=== PATIENT | male | born 1950 ===

== ENCOUNTER 2017-02-24 12:52 | Observation (INO) | payer MEDICARE, BC, OTHER ==
[2017-02-24] MEDS ORDERED: Sodium Chloride 0.9% 500 ML IV STA (14:29)
[2017-02-24 15:22] LABS: BASO # 0.01 K/mm3 (0.0-2.0); BASO % 0.2 % (0.0-3.0); EOS % 0.6 % (1.5-5.0); GRAN % 53.3 % (50.0-68.0); HEMOGLOBIN 15.5 g/dL (14.0-18.0); LYMPH % 20.3 % (22.0-35.0); MEAN CELL VOLUME 88.2 fl (80.0-105.0); MEAN CORPUSCULAR HEMOGLOBIN 29.1 pg (25.0-35.0); MONO # 1.3 (0.1-0.6); MONO % 25.6 % (1.0-6.0); PLATELET COUNT 139 10^3/uL (120.0-450.0); RBC 5.32 10^6/uL (3.5-6.1); RED CELL DISTRIBUTION WIDTH 13.5 % (11.5-14.5); WHITE BLOOD COUNT 5.1 10^3/ul (4.5-11.0)
[2017-02-24 15:23] LABS: URINE BILIRUBIN NEGATIVE (NEGATIVE); URINE BLOOD MODERATE (NEGATIVE); URINE GLUCOSE (UA) NEGATIVE (NEGATIVE); URINE LEUKOCYTE ESTERASE NEGATIVE Leu/uL (NEGATIVE); URINE NITRATE NEGATIVE (NEGATIVE); URINE PROTEIN TRACE mg/dL (<30 mg/dL)
--- NOTE | 2017-02-24 15:27 | RAD ---
HISTORY: weakness COMPARISON: No prior. FINDINGS: LUNGS: No active pulmonary disease. PLEURA: No significant pleural effusion identified, no pneumothorax apparent. CARDIOVASCULAR: Normal. OSSEOUS STRUCTURES: No significant abnormalities. VISUALIZED UPPER ABDOMEN: Normal. OTHER FINDINGS: None. IMPRESSION: No active disease.
[2017-02-24 15:30] LABS: URINE APPEARANCE SL CLOUDY (CLEAR); URINE COLOR YELLOW (YELLOW)
[2017-02-24 15:43] LABS: ALB/GLOB RATIO 1.3 (1.1-1.8); ALT/SGPT 38 U/L (7-56); AST/SGOT 22 U/L (17-59); BLOOD UREA NITROGEN 17 mg/dL (7-21); CALCIUM 9.3 mg/dL (8.4-10.5); GFR AFRICAN-AMERICAN > 60; GFR NON-AFRICAN AMERICAN > 60; LIPASE 61 U/L (23-300)
[2017-02-24 16:16] LABS: URINE BACTERIA FEW (NEG); URINE WBC 0 - 2 /hpf (0-6)
[2017-02-24 16:37] LABS: TROPONIN I < 0.01 ng/mL
[2017-02-24 17:13] LABS: ATYPICAL LYMPHOCYTE 11 % (0.0-0.0); EOSINOPHIL 2 % (0.0-3.0); LYMPHOCYTE 20 % (22.0-35.0); MONOCYTE 9 % (1.0-6.0); NEUTROPHIL 58 % (50.0-70.0); PLATELET ESTIMATE NORMAL (NORMAL)
[2017-02-24] MEDS ORDERED: Sodium Chloride 0.45% 1,000 ML IV SCH (18:45)
--- NOTE | 2017-02-24 19:17 | ED PDOC ---
Arrival/HPI - General Historian: Patient - History of Present Illness Symptom Course: Worsening Quality: Aching Severity Level: 5 <Erika Garcia - Last Filed: 02/24/17 20:02> <Felix Ye - Last Filed: 02/24/17 21:56> - General Chief Complaint: Flu-like Symptoms Time Seen by Provider: 02/24/17 13:56 - History of Present Illness Narrative History of Present Illness (Text): 02/24/17 19:13 66-year-old male with a history of myasthenia gravis and Parkinson's disease presents today with a three-day history of generalized weakness. Patient states he's been unable to get out of the bed for the past 3-4 days. Patient states he developed fevers 2 days ago. He is complaining of nasal congestion sore throat and a nonproductive cough. Patient states he did not get his flu shot this year. He denies abdominal pain. He denies nausea or vomiting. Denies chest pain. Patient states when he coughs he feels as if he's choking. Patient complaining of headache. Denies urinary symptoms. Denies sick contacts. No other complaints (Erika Garcia) Past Medical History - Provider Review Nursing Documentation Reviewed: Yes - Travel History Have you recently traveled outside [place] w/in the past 3 mons?: No - Infectious Disease Hx of Infectious Diseases: None - Tetanus Immunization Tetanus Immunization: Unknown - Neurological Hx Parkinson's Disease: Yes Other/Comment: myasthenia gravis - HEENT Hx Glaucoma: Yes - Renal Hx Renal Disorder: No - Psychiatric Hx Depression: No Hx Emotional Abuse: No Hx Physical Abuse: No Hx Substance Use: No - Anesthesia Hx Anesthesia: No - Suicidal Assessment Feels Threatened In Home Enviroment: No <Erika Garcia - Last Filed: 02/24/17 20:02> Family/Social History - Physician Review Nursing Documentation Reviewed: Yes Family/Social History: Unknown Family HX Smoking Status: Unknown If Ever Smoked Hx Alcohol Use: No Hx Substance Use: No Hx Substance Use Treatment: No <Erika Garcia - Last Filed: 02/24/17 20:02> Allergies/Home Meds <Erika Garcia - Last Filed: 02/24/17 20:02> <Felix Ye - Last Filed: 02/24/17 21:56> Allergies/Adverse Reactions: Allergies dairy foods Allergy (Uncoded 02/24/17 13:53) DIARRHEA Home Medications: Home Meds Medication Instructions Recorded Confirmed Sertraline [Zoloft] 200 mg PO DAILY 08/20/12 02/24/17 Brimonidine 0.15% [Alphagan P 5 Ml] 1 drop OU BID 02/24/17 02/24/17 Carbidopa/Levodopa/Entacapone 1 tab PO TID 02/24/17 02/24/17 [Carbidopa, Levodopa and Entacapone 37.5 mg-20] Clonazepam [Klonopin] 0.5 mg PO HS 02/24/17 02/24/17 Hydroxyzine Pamoate [Vistaril] 25 mg PO PRN 02/24/17 02/24/17 L. Acidophilus/L. Rhamnosus 50 mg PO DAILY 02/24/17 02/24/17 [Probiotic 15 Billion Cell Cap] Latanoprost 0.005% Opht [XALATAN 1 drop HS 02/24/17 02/24/17 2.5 Ml] Melatonin 5 mg PO HS 02/24/17 02/24/17 Mycophenolate Mofetil HCl 1,000 mg PO BID 02/24/17 02/24/17 [Mycophenolate Mofetil] Pantoprazole [Protonix] 40 mg PO DAILY 02/24/17 02/24/17 Review of Systems - Review of Systems Constitutional: Fatigue, Fevers ENT: Sore Throat, Sinus Congestion Respiratory: Cough. absent: SOB Cardiovascular: absent: Chest Pain, Palpitations Gastrointestinal: absent: Abdominal Pain, Nausea, Vomiting Genitourinary Male: absent: Dysuria Musculoskeletal: absent: Arthralgias Skin: absent: Rash, Pruritis Neurological: Headache. absent: Dizziness Psychiatric: absent: Anxiety, Depression <AzoiaErika - Last Filed: 02/24/17 20:02> Physical Exam Vital Signs Reviewed: Yes Temperature: Afebrile Blood Pressure: Normal Pulse: Tachycardic Respiratory Rate: Normal Appearance: Positive for: Well-Appearing, Non-Toxic, Comfortable Pain Distress: None Mental Status: Positive for: Alert and Oriented X 3 - Systems Exam Head: Present: Atraumatic Pupils: Present: PERRL Extroacular Muscles: Present: EOMI Conjunctiva: Present: Normal Ears: Present: Normal, NORMAL TM Mouth: Present: Moist Mucous Membranes. No: Dry, Drooling, Trismus Pharnyx: Present: Normal. No: ERYTHEMA, EXUDATE Nose (External): Present: Atraumatic Nose (Internal): Present: Normal Inspection Neck: Present: Normal Range of Motion Respiratory/Chest: Present: Clear to Auscultation, Good Air Exchange. No: Respiratory Distress, Accessory Muscle Use Cardiovascular: Present: Regular Rate and Rhythm, Normal S1, S2. No: Murmurs Abdomen: Present: Normal Bowel Sounds. No: Tenderness, Distention, Peritoneal Signs, Rebound, Guarding Back: Present: Normal Inspection Upper Extremity: Present: Normal ROM Lower Extremity: Present: Normal ROM Neurological: Present: GCS=15, Speech Normal Skin: Present: Warm, Dry, Normal Color. No: Rashes Psychiatric: Present: Alert, Oriented x 3 <Erika Garcia - Last Filed: 02/24/17 20:02> Vital Signs Temp Pulse Resp BP Pulse Ox 02/24/17 18:16 81 18 135/74 97 02/24/17 16:57 89 18 138/88 97 02/24/17 15:34 99.1 F 99 H 18 134/74 97 02/24/17 13:49 99.6 F 104 H 20 136/88 97 Medical Decision Making <Erika Garcia - Last Filed: 02/24/17 20:02> <Felix Ye - Last Filed: 02/24/17 21:56> ED Course and Treatment: 02/24/17 19:19 66-year-old male with myasthenia gravis and Parkinson's disease with a four-day history of generalized weakness. Patient with slight tachycardia number emergency room and low-grade oral temperature CBC within normal limits CMP within normal limits Chest x-ray shows no infiltrate or effusion as read by the radiologist EKG shows normal sinus rhythm at 97 bpm normal axis normal intervals no ST elevations Patient's flu test is positive. Patient was given Tylenol for fever Patient was given Tamiflu by mouth Patient was given 1 L normal saline IV bolus Patient reassessment: Patient feeling slightly better still complaining of complete fatigue. Patient with a history of myasthenia gravis complaining of cough and feeling as if he is choking when he coughs with a positive fluid generalized weakness will admit observational status for further evaluation. Case was discussed in depth with Dr. Denson covering for Dr. Esqueda/jose rafael. accepts observational status admission for influenza with generalized weakness. impression; influenza, generalized weakness admit observational status to med/surg (Erika Garcia) - Lab Interpretations Lab Results: 02/24/17 15:00 02/24/17 15:00 Lab Results 02/24/17 15:00: Influenza Typ A,B (EIA) Pos for influenza a H 02/24/17 15:00: Urine Color Yellow, Urine Appearance Sl cloudy, Urine pH 6.0, Ur Specific [place] 1.025, Urine Protein Trace H, Urine Glucose (UA) Negative, Urine Ketones Trace H, Urine Blood Moderate H, Urine Nitrate Negative, Urine Bilirubin Negative, Urine Urobilinogen 2.0 H, Ur Leukocyte Esterase Negative, Urine RBC 10 - 15, Urine WBC 0 - 2, Ur Epithelial Cells 1 - 3, Urine Bacteria Few 02/24/17 15:00: WBC 5.1, RBC 5.32, Hgb 15.5, Hct 46.9, MCV 88.2, MCH 29.1, MCHC 33.0, RDW 13.5, Plt Count 139, MPV 10.0, Gran % 53.3, Lymph % (Auto) 20.3 L, [place] % (Auto) 25.6 H, Eos % (Auto) 0.6 L, Baso % (Auto) 0.2, Gran # 2.70, Lymph # 1.0 L, [place] # 1.3 H, Eos # 0.0, Baso # 0.01, Neutrophils % (Manual) 58, Lymphocytes % (Manual) 20 L, Atypical Lymphs % 11 H, Monocytes % (Manual) 9 H, Eosinophils % (Manual) 2, Platelet Evaluation Normal 02/24/17 15:00: Sodium 135, Potassium 3.9, Chloride 98, Carbon Dioxide 30, Anion Gap 12, BUN 17, Creatinine 1.1, Est GFR ( Amer) > 60, Est GFR (Non- Af Amer) > 60, Random Glucose 104, Calcium 9.3, Total Bilirubin 0.8, AST 22, ALT 38, Alkaline Phosphatase 52, Lactate Dehydrogenase 497, Total Creatine Kinase 91, Troponin I < 0.01, Total Protein 7.0, Albumin 4.0, Globulin 3.0, Albumin/Globulin Ratio 1.3, Lipase 61 - RAD Interpretation Radiology Orders: 02/24/17 14:29 CHEST PORTABLE [RAD] Stat - Medication Orders Current Medication Orders: Carbidopa/Levodopa/Entacapone (Stalevo 150) 1 tab PO TID LAITH Clonazepam (Klonopin) 0.5 mg PO HS LAITH Sodium Chloride (Sodium Chloride 0.45%) 1,000 mls @ 60 mls/hr IV .[id number] LAITH Last Admin: 02/24/17 20:04 Dose: 60 mls/hr eMAR Start Stop Document 02/24/17 20:04 CNR (Rec: 02/24/17 20:04 CNR [id number]) Intravenous Solution Start Date 02/24/17 Start Time 20:04 Sertraline HCl (Zoloft) 200 mg PO DAILY LAITH Discontinued Medications Acetaminophen (Tylenol 325mg Tab) 975 mg PO STAT STA Stop: 02/24/17 14:31 Last Admin: 02/24/17 15:10 Dose: 975 mg Sodium Chloride (Sodium Chloride 0.9%) 500 mls @ 999 mls/hr IV .Q31M STA Stop: 02/24/17 14:59 Last Admin: 02/24/17 15:10 Dose: 999 mls/hr eMAR Start Stop Document 02/24/17 15:10 HI (Rec: 02/24/17 15:10 HI [id number]) Intravenous Solution Start Date 02/24/17 Start Time 15:10 Oseltamivir Phosphate (Tamiflu Cap) 75 mg PO STAT STA PRN Reason: Protocol Stop: 02/24/17 16:03 Last Admin: 02/24/17 16:54 Dose: 75 mg - PA / PRICING STRATEGIST / Resident Statement MD/DO has reviewed & agrees with the documentation as recorded. <Felix Ye - Last Filed: 02/24/17 21:56> Disposition/Present on Arrival - Present on Arrival Any Indicators Present on Arrival: No History of DVT/PE: No History of Uncontrolled Diabetes: No Urinary Catheter: No History of Decub. Ulcer: No History Surgical Site Infection Following: None - Disposition Have Diagnosis and Disposition been Completed?: Yes Disposition Time: 18:00 Patient Plan: Observation <Erika Garcia - Last Filed: 02/24/17 20:02> <Felix Ye - Last Filed: 02/24/17 21:56> - Disposition Diagnosis: Influenza, Generalized weakness Disposition: HOSPITALIZED Condition: FAIR
[2017-02-25 06:10] VITALS: PULSE 83; RESP 20
[2017-02-25 06:55] VITALS: TEMP 98.9; BMI 31.1
[2017-02-25] MEDS ORDERED: Albuterol-Ipratrop 3 mg / 0.5 (3 ml) UD IH PRN (07:41)
[2017-02-25 07:56] LABS: BASO # 0.01 K/mm3 (0.0-2.0); BASO % 0.3 % (0.0-3.0); EOS # 0.1 (0.0-0.7); EOS % 3.4 % (1.5-5.0); GRAN # 0.58 (1.4-6.5); GRAN % 17.9 % (50.0-68.0); HEMOGLOBIN 14.6 g/dL (14.0-18.0); LYMPH # 1.6 (1.2-3.4); MEAN CELL VOLUME 87.8 fl (80.0-105.0); MEAN CORPUSCULAR HEMOGLOBIN 28.2 pg (25.0-35.0); MEAN CORPUSCULAR HGB CONC 32.1 g/dl (31.0-37.0); MONO # 0.9 (0.1-0.6); MONO % 28.4 % (1.0-6.0); RBC 5.18 10^6/uL (3.5-6.1); RED CELL DISTRIBUTION WIDTH 13.4 % (11.5-14.5); WHITE BLOOD COUNT 3.2 10^3/ul (4.5-11.0)
[2017-02-25] MEDS ORDERED: Budesonide 0.5 mg/2 ml Inhal Susp UD IH SCH (08:00)
[2017-02-25] MEDS ORDERED: Albuterol-Ipratrop 3 mg / 0.5 (3 ml) UD IH SCH (08:00)
--- NOTE | 2017-02-25 08:32 | CARD ---
APPROVED REPORT EKG Measurement Heart [id number] <Conclusion> Normal sinus rhythm Normal ECG
[2017-02-25 09:41] VITALS: BP 122/81; O2SAT 94
[2017-02-25] MEDS ORDERED: Brimonidine 0.15% 50 DROP/5 ML BOTTLE OU SCH (10:00)
[2017-02-25] MEDS ORDERED: Carbidopa/Levodopa/Entacapone 37.5mg-150mg-200mg PO SCH (10:00)
[2017-02-25] MEDS ORDERED: Fluticasone Nasal 50 mcg/Spray NS SCH (10:00)
[2017-02-25] MEDS ORDERED: Pantoprazole 40 mg EC Tab PO SCH (10:00)
--- NOTE | 2017-02-25 11:23 | CON ---
DATE: 02/25/2017 PULMONARY CONSULTATION DICTATING PHYSICIAN: Obie Lopez MD. REASON FOR CONSULTATION: Cough. REFERRING PHYSICIAN: Miquel Denson DO. HISTORY OF PRESENT ILLNESS: The patient is a 66-year-old male, with past medical history significant for myasthenia gravis, Parkinson's disease, who presents with main complaint of increasing weakness for the past 3 days. In addition, over the past 3 days, the patient also complains of nasal congestion, sore throat and a nonproductive cough. The patient denies shortness of breath at rest or dyspnea on exertion. There is also no history of chest pain, coughing up of blood or chest pain - made worse with deep respirations. The patient did state that he developed a fever 2 days ago. No history of chills or infectious exposure. No history of night sweats, weight loss or appetite change prior to the above events. No history of leg or calf pains. No history of syncope or diaphoresis. No history of recent travel or trauma. REVIEW OF SYSTEMS: No history of nausea, vomiting or diarrhea. No acute urinary symptoms. No new musculoskeletal complaints. Rest of the review of systems negative. ALLERGY: ALLERGIES ARE TO DAIRY FOODS. SOCIAL HISTORY: Negative for tobacco. Negative for alcohol. FAMILY HISTORY: No inheritable diseases. HOME MEDICATIONS: Include Zoloft, Protonix, Klonopin, mycophenolate, carbidopa. PHYSICAL EXAMINATION: GENERAL: The patient is not short of breath at rest. He is not using accessory muscles for breathing. VITAL SIGNS: Temperature 98.9, pulse 83, respirations 18, blood pressure 127/86. Oxygen saturation on room air is 96%. HEENT: Normocephalic, atraumatic. No JVD. CARDIOVASCULAR: Positive S1 and S2. No S3 gallop. LUNGS: Decreased breath sounds at the bases. Minimal bilateral rhonchi. No wheezing. EXTREMITIES: Positive for mild edema. No cyanosis or clubbing. Calves are nontender to palpation. GI: Abdomen is soft, nontender and nondistended. Bowel sounds are positive. SKIN: No acute rash. NEUROLOGIC: Limited at the present time. PERTINENT LABORATORY DATA: Chest x-ray was done yesterday and reviewed. There is no active disease present. CBC: White count 5.1, hemoglobin 15.5, hematocrit 46.9, platelets of 139,000. Complete metabolic profile - all values within normal limits. Serologies are positive for influenza A. IMPRESSION 1. Acute bronchitis. 2. Acute rhinitis. 3. Influenza A positivity. 4. Parkinson's disease. PLAN: The patient presents to [facility] with main complaint of increasing weakness for the past 3 days. In addition, as above, the patient also complains of nasal congestion, sore throat and a nonproductive cough for the past 3 days. He did develop a fever 2 days ago. There have been no temperatures measured in the hospital. I did review the chest x-ray as above. There is no active disease present. On physical exam, there is minimal bronchospasm present. However, there is no significant alveolar-arterial gradient. Oxygen saturation on room air is 96%. I will start the patient on nebulizer treatments and inhaled steroids. I will also start nasal steroids. The patient does feel better, and is clinically improved this morning. Additional pulmonary intervention will be based on the clinical status of the patient. I will discuss the above with Dr. Denson this morning. Thank you very much for this pulmonary consultation. Obie Lopez MD MTDD
--- NOTE | 2017-02-25 14:32 | HP ---
HISTORY OF PRESENT ILLNESS: I saw him in his room. He is on isolation. This is a 66-year-old male who comes in with a history of unable to get out of the bed for the past 3 days, developed fevers for the past 2 days, nasal congestion, nonproductive cough. He did get the flu shot this year, but he had a positive influenza A in the ER. PAST MEDICAL HISTORY: He has a past medical history of myasthenia gravis, Parkinson's disease, glaucoma. He has a history of depression, anxiety, insomnia, GERD. FAMILY HISTORY: Unknown family history. SOCIAL HISTORY: Not a smoker. No alcohol. No drugs. MEDICATIONS: He takes Zoloft, Alphagan, Sinemet, Klonopin, Vistaril, eyedrops, melatonin, Protonix. REVIEW OF SYSTEMS: He is fatigued. He has got fevers. He has got sore throat. He has sinus congestion, cough. No shortness of breath. No chest pains or palpitations. No abdominal pain, nausea, vomiting. No problems urinating. Does have some arthralgias. No skin issues or rashes headache. No anxiety or depression. PHYSICAL EXAMINATION: VITAL SIGNS: He has a 99.1 temp, 99 pulse, 18 respiratory rate, 134/74 blood pressure, 97% O2 sat on room air. HEENT: His head is atraumatic, normocephalic. Extraocular muscles are intact. Pupils equal, reactive to light and accommodation. Conjunctivae normal. Ears are patent. Throat is moist. No erythema. NECK: Supple. No JVD. HEART: Regular rate. Normal S1 and S2. LUNGS: Decreased breath sounds, but clear to auscultation. ABDOMEN: Soft, nontender. Positive bowel sounds. EXTREMITIES: Have no edema. Normal range of motion. NEUROLOGIC: GCS is 15. Normal speech. Alert and oriented x3. SKIN: Warm and dry. No apparent rashes or ulcers. LYMPH NODES: Thyroid midline. No palpable appreciable lymphadenopathy. LABORATORY DATA: He had multiple tests. He is positive for influenza A. White count is 5.1, hemoglobin 15.5, hematocrit 46.9, platelets of 139. He has 135 sodium, potassium 3.9, BUN 70, creatinine 1.1, GFR is greater than 60, sugar is 104, calcium is 9.3, total bili is 0.8, AST is 22, ALT is 38, alk phos 52, lactate dehydrogenase is 497, total creatine kinase is 91. Troponin I is less than 0.01. Total protein is 7, albumin is 4, globulin 3, lipase 61. Urine is moderate blood, but few bacteria, negative leukocytes. Chest x-ray was normal. IMPRESSION: I will have a consult with Pulmonary to get their opinion. I need physical therapy. If they feel that he could be discharged to home and he is eating, I will try and discharge him home today. I am concerned about him because of his history of Parkinson's and myasthenia gravis and he is eating and he can do the Tamiflu at home possibly, but he is very weak. He is on observation status and he will see what they say. Harsha Henok who is very weak with the flu, history of myasthenia gravis and Parkinson's disease. Miquel Denson DO MTDD
[2017-02-25] MEDS ORDERED: Latanoprost 2.5 ml Opht Soln OU SCH (22:00)
== END 2017-02-25 13:01 | disposition home or self-care (01) ==
LOC: ED 12:52 → ERH 18:19 → 5RSO 21:03
PROVIDERS: ADMIT Family Medicine; ATTEND Family Medicine
DX: J10.1 Influenza due to other identified influenza virus with other respiratory manifestations (principal); J20.9 Acute bronchitis, unspecified; J00 Acute nasopharyngitis [common cold]; G70.00 Myasthenia gravis without (acute) exacerbation; G20 Parkinson's disease; K21.9 Gastro-esophageal reflux disease without esophagitis; F41.9 Anxiety disorder, unspecified; F32.9 Major depressive disorder, single episode, unspecified; H40.9 Unspecified glaucoma; G47.00 Insomnia, unspecified
CPT/HCPCS: 36415; 71045; 80053; 81001; 82550; 83615; 83690; 84484; 85025; 87040; 87804; 93005; 94640; 99285; G0378; J7030; J7040; J7517